=== PATIENT | male | born 1950 ===

== ENCOUNTER → 2018-12-27 21:03 | Outpatient (REF) | payer MEDICARE, SELFPAY ==
[2018-12-27 21:55] LABS: Alanine Aminotransferase 43 IU/L (21-72); Albumin 4.4 g/dL (3.5-5.0); Albumin Globulin Ratio 1.8 (1.0-2.8); Alkaline Phosphatase 80 U/L (38-126); Aspartate Aminotransferase 29 IU/L (17-59); BUN Creatinine Ratio 21.7 (6-22); Bilirubin Total 0.6 mg/dL (0.2-1.3); Blood Urea Nitrogen 26 mg/dL (9-20); Calcium 11.4 mg/dL (8.4-10.2); Carbon Dioxide 27 mmol/L (22-32); Chloride 104 mmol/L (98-107); Cholesterol 238 mg/dL (140-199); Estimated Glomerular Filt Rate 59.9 mL/min (>60); Globulin 2.5 g/dL (1.7-4.1); Glucose 148 mg/dL (80-110); HDL Cholesterol 33 mg/dL (40-60); HEMOLYSIS < 15 (0-50); LDL Cholesterol Calculated 175 mg/dL (<100); Potassium 4.6 mmol/L (3.4-5.1); Sodium 139 mmol/L (137-145); Total Protein 6.9 g/dL (6.3-8.2); Triglycerides 150 mg/dL (35-150)
[2018-12-27 21:56] LABS: Add Manual Diff / Slide Review NO; Basophils Absolute Auto 0 /uL (0-100); Basophils Percent Auto 0.8 % (0-2); Eosinophils Absolute Auto 200 /uL (0-450); Eosinophils Percent Auto 3.1 % (2-4); Hematocrit 53.3 % (41-53); Hemoglobin 18.5 g/dL (13.5-17.5); Lymphocytes Absolute Auto 1700 /uL (1100-4500); Lymphocytes Percent Auto 33.8 % (25-40); Mean Corpuscular HGB Conc 34.6 % (30-36); Mean Corpuscular Hemoglobin 32.9 PG (26-34); Mean Corpuscular Volume 95.1 fL (80-100); Monocytes Absolute Auto 400 /uL (0-900); Neutrophils Absolute Auto 2700 /uL (1500-7000); Neutrophils Percent Auto 54.3 % (50-75); Platelet Count 156 X10^3/uL (150-400); Red Cell Distribution Width 13.5 % (11.6-14.8)
[2018-12-28 04:41] LABS: Free T3, Triiodothyronine Free 3.74 pg/mL (2.77-5.27); Free T4, Direct Thyroxine 0.79 ng/dL (0.78-2.19)
[2018-12-28 04:55] LABS: Thyroid Stimulating Hormone 4.36 uIU/mL (0.47-4.68)
[2018-12-31 14:39] LABS: PSA Total 0.24 ng/mL (< 4.01)
[2018-12-31 16:05] LABS: Estradiol 39 pg/mL (< 40)
[2018-12-31 17:48] LABS: Apolipoprotein B 118 mg/dL (52-109)
== END ==
LOC: LAB 21:03
PROVIDERS: Visit Provider Naturopath
DX: E03.9 Hypothyroidism, unspecified (principal); E29.1 Testicular hypofunction; E78.5 Hyperlipidemia, unspecified; E66.09 Other obesity due to excess calories; I83.892 Varicose veins of left lower extremity with other complications
CPT/HCPCS: 36415; 80053; 80061; 82670; 84153; 84154; 84402; 84403; 84439; 84443; 84481; 85025